=== PATIENT | female | born 1995 | race Hispanic/Latino ===

== ENCOUNTER 2021-01-15 09:37 | Emergency (ER) | payer OTHER ==
[~2021-01-15] VITALS: Ht 157.5 cm; Wt 53.6 kg
[2021-01-15] MEDS ORDERED: MAGNESIUM100 MG (10:13)
[2021-01-15] MEDS ORDERED: birth control (10:13)
[2021-01-15] MEDS ORDERED: MULTI-VITAMIN1 EACH PO (10:13)
[2021-01-15] MEDS ORDERED: LORAZEPAM 1 MG TAB PO ONE (10:30)
[2021-01-15] MEDS ORDERED: ATIVAN0.5 MG PO (10:42)
[2021-01-15] MEDS ORDERED: LORAZEPAM 0.5 MG TAB ONE (10:42)
[2021-01-15] MEDS ORDERED: SERTRALINE HCL50 MG PO (10:44)
== END 2021-01-15 11:00 | disposition home or self-care (01) ==
LOC: FSED 09:50
DX: F41.0 Panic disorder [episodic paroxysmal anxiety] (principal)
CPT/HCPCS: 81003; 81025; 99283